=== PATIENT | female | born 1945 | race Caucasian/White ===

== ENCOUNTER → 2017-01-15 | Outpatient (CLI) | payer MEDICARE, OTHER ==
--- NOTE | 2017-01-15 13:06 | RAD ---
DATE: January 15, 2017 EXAM: DIGITAL DIAGNOSTIC BILATERAL HISTORY: Follow-up of left breast nodule seen on study dated November 16, 2015. COMPARISON: November 16, 2015. This study was interpreted with the benefit of Computerized Aided Detection (CAD). FINDINGS: The breast parenchyma is primarily fatty replaced. There are no dominant suspicious masses, suspicious microcalcifications or evidence of architectural distortion. The previously seen nodule of the medial aspect of the left breast is not seen in today's study consistent with a benign finding. IMPRESSION: No mammographic indicators for malignancy. Resolution of nodule of the left breast seen previously consistent with a benign finding. BI-RADS CATEGORY: 2 BENIGN FINDING RECOMMENDED FOLLOW-UP: 12M 12 MONTH FOLLOW-UP PQRS compliance statement: Patient information was entered into a reminder system with a target due date January 16, 2018 for the next mammogram. Mammography is a sensitive method for finding small breast cancers, but it does not detect them all and is not a substitute for careful clinical examination. A negative mammogram does not negate a clinically suspicious finding and should not result in delay in biopsying a clinically suspicious abnormality. "Our facility is accredited by the [employer] Mammography [employer]." The patient's breast density may affect the ability of mammography to detect breast cancer. There are 4 categories of breast density, A, B, C and D. Breast density A means that most of the breast tissue is replaced with adipose tissue and therefore is not dense. Breast density B means that the breast tissue is mildly dense and scattered. Breast density C means that the breast tissue is heterogeneously dense. Breast density D means that the breast tissue is very dense. Breast densities especially C and D may decrease the sensitivity of mammography to detect breast cancer. Therefore, the patient may benefit from 3-D breast mammography (3D breast tomography) as a part of their screening mammogram. Insurance may or may not pay for this additional imaging. The patient's breast density based on today's mammogram is category A.
== END | disposition home or self-care (01) ==
LOC: MAMMO 12:16
PROVIDERS: ATTEND Family Medicine
DX: N63 Unspecified lump in breast (principal)
CPT/HCPCS: G0204; 77066

== ENCOUNTER → 2018-08-04 | Outpatient (CLI) | payer MEDICARE, OTHER ==
--- NOTE | 2018-08-04 16:18 | RAD ---
Examination: 2 views of the bilateral hips and 3 views of the bilateral knees HISTORY: History of hip pain, knee pain COMPARISON: Left knee radiograph from 11/15/2015 FINDINGS: Bilateral femoral heads within the acetabula. Moderate joint space loss identified in the left hip joint. Mild joint space loss identified in the right hip joint. Moderate joint space loss identified in the medial, lateral compartment femoral compartments of the bilateral knees. Chondrocalcinosis identified in the left knee. Moderate osteophyte formation identified in the medial compartment of the right knee. Partially visualized aortic biiliac endovascular graft. IMPRESSION: 1. Moderate degenerative changes left hip joint and moderate bilateral tricompartmental degenerative changes knee joint. 2. Chondrocalcinosis left knee. Electronically signed by: Az Francois MD (08/04/2018 4:14 PM) [place] [id number]
== END | disposition home or self-care (01) ==
LOC: PMG 12:35
PROVIDERS: ATTEND Family Medicine
DX: M11.262 Other chondrocalcinosis, left knee (principal); M17.0 Bilateral primary osteoarthritis of knee; M16.12 Unilateral primary osteoarthritis, left hip; M25.761 Osteophyte, right knee
CPT/HCPCS: 73521; 73562

== ENCOUNTER 2019-07-22 05:37 | Inpatient (IN) | payer MEDICARE, OTHER ==
[~2019-07-22] VITALS: Ht 162.6 cm; Wt 94.3 kg
[2019-07-22] MEDS ORDERED: 0.9 % SODIUM CHLORIDE 10 ML DISP.SYRIN. IV PRN (06:00)
[2019-07-22] MEDS ORDERED: ACETAMINOPHEN 500 MG TABLET PO ONE (06:15)
[2019-07-22] MEDS ORDERED: IV NORMAL SALINE 1,000ML 1,000 ML IV ONE ×2 (06:15→08:00)
--- NOTE | 2019-07-22 06:23 | PHYS DOC ---
Past History Past Medical History: Arthritis, High Cholesterol, Hypertension, MRSA Past Surgical History: Other (AAA SURGERY) Additional Past Surgical Histo: CATARACT Smoking: Less than 1pk/day Alcohol Use: None Adult General Chief Complaint Chief Complaint: FEVER HPI HPI Patient is a 73-year-old female who was brought here by EMS for evaluation of 2 days history of general weakness, fever, cough. Patient also complains of shoulder pain, hip pain , knee pain. Patient has history of arthritis. She is a smoker, not on any oxygen at home. She denies any history of coronary artery disease. Patient had no history of diabetes. She has history hypertension. Her says she is getting weaker, not able to walk around much for the last few day. She denies any chest pain. She also complain of pain in the back of her head. Patient was given 1 L NS iv bolus by EMS on route. All other ROS is negative unless otherwise noted in HPI Review of Systems Review of Systems See above Current Medications Current Medications Current Medications Medications (Trade) Dose Ordered Sig/Almaz Start Time Stop Time Status Last Admin Dose Admin Acetaminophen (Tylenol) 1,000 mg 1X ONCE 07/22/19 06:15 07/22/19 06:16 Sodium Chloride 1,000 ml @ 1,000 mls/hr 1X ONCE 07/22/19 06:15 07/22/19 07:14 Sodium Chloride (Normal Saline Flush) 10 ml QSHIFT PRN 07/22/19 06:00 Allergies Allergies Allergies Coded Allergies Type Severity Reaction Last Updated Verified Iodinated Contrast Media Allergy Intermediate Rash 07/22/19 Yes celecoxib Allergy Intermediate Rash 07/22/19 Yes levothyroxine sodium Allergy Intermediate Rash 07/22/19 Yes lisinopril Allergy Intermediate Rash 07/22/19 Yes nifedipine Allergy Intermediate 07/22/19 Yes adhesive tape Adverse Reaction Mild 07/22/19 Yes pantoprazole Adverse Reaction Mild 07/22/19 Yes Physical Exam Physical Exam See above Constitutional: Well developed, well nourished, no acute distress, non-toxic appearance. [] HENT: Normocephalic, atraumatic, bilateral external ears normal, oropharynx moist, no oral exudates, nose normal. [] Eyes: PERRLA, EOMI, conjunctiva normal, no discharge. [] Neck: Normal range of motion, no tenderness, supple, no stridor. [] Cardiovascular:Heart rate regular rhythm, no murmur [] Lungs & Thorax: Bilateral breath sounds clear to auscultation [] Abdomen: Bowel sounds normal, soft, no tenderness, no masses, no pulsatile masses. [] Skin: Warm, dry, no erythema, no rash. [] Back: No tenderness, no CVA tenderness. [] Extremities: No tenderness, no cyanosis, no clubbing, ROM intact, no edema. [] Neurologic: Alert and oriented X 3, normal motor function, normal sensory function, no focal deficits noted. [] Psychologic: Affect normal, judgement normal, mood normal. [] EKG EKG EKG was read by this physician at 0557, rate of 102 BPM, NO STEMI. SINUS TACHYCARDIA. Radiology/Procedures Radiology/Procedures [][address] [address] IMAGING REPORT Signed PATIENT: VILMA PRITCHETT ACCOUNT: [id number] : 1945 LOCATION: ER AGE: 73 SEX: F EXAM STATUS: REG ER ORD. PHYSICIAN: ZOILA PELAEZ DO REASON: headache PROCEDURE: CT HEAD WO CONTRAST CT HEAD WO CONTRAST History: Headache Comparison: None. Technique: Noncontrast CT imaging was performed of the head. Exposure: One or more of the following individualized dose reduction techniques were utilized for this examination: 1. Automated exposure control 2. Adjustment of the mA and/or kV according to patient size 3. Use of iterative reconstruction technique. Findings: No acute extra-axial or parenchymal hemorrhage is identified. There is no significant intra-axial mass effect, midline shift, or extra-axial fluid collection. The tejada-white differentiation of the major vascular territories is preserved. There is multifocal wbvc-vg-okzzcnyy ill-defined low-density of the supratentorial parenchyma bilaterally. There is atherosclerotic calcification of the carotid siphons bilaterally. The ventricles, sulci, and cisterns are within normal limits in size and configuration. The mastoid air cells and the visualized paranasal sinuses are aerated. No acute calvarial abnormality is identified. Impression: 1. No acute intracranial abnormality is identified. Multifocal low-density of the supratentorial parenchyma bilaterally is nonspecific, more commonly due to chronic microvascular ischemic disease in a patient this age. Electronically signed by: Rickie Gonzalez MD (07/22/2019 7:14 AM) [place] [id number] DICTATED AND SIGNED BY: RICKIE GONZALEZ MD DATE: 07/22/19713 CC: ZOILA PELAEZ DO; DANITZA RAMEY MD ~ [place] [address] IMAGING REPORT Signed PATIENT: VILMA PRITCHETT ACCOUNT: [id number] : 1945 LOCATION: ER AGE: 73 SEX: F EXAM STATUS: REG ER ORD. PHYSICIAN: ZOILA PELAEZ DO REASON: Short of air, fever PROCEDURE: PORTABLE CHEST 1V PORTABLE CHEST 1V History: Shortness of air, fever Comparison: July 18, 2010 Findings: Single view of the chest is submitted. There is again tortuous thoracic aorta, atherosclerotic calcification greater near aortic arch. There is again suspected hiatal hernia. Cardiac silhouette is similar, borderline enlarged. There is no new significant dependent pleural fluid, pneumothorax, or new lobar consolidation. There is degenerative change of the shoulders bilaterally. Impression: 1. No significant infiltrate is identified by radiograph. 2. There is suspected hiatal hernia as seen previously. Electronically signed by: Rickie Gonzalez MD (07/22/2019 7:15 AM) [place] [id number] DICTATED AND SIGNED BY: RICKIE GONZALEZ MD DATE: 07/22/19714 CC: ZOILA PELAEZ DO; DANITZA RAMEY MD ~ Course & Med Decision Making Course & Med Decision Making Pertinent Labs and Imaging studies reviewed. (See chart for details) Patient was given 2 L OF NS IV IN ER in addition to 1 L of NS given by EMS on route. Patient was given 1 gram IV rocephin Dragon Disclaimer Dragon Disclaimer This electronic medical record was generated, in whole or in part, using a voice recognition dictation system. Departure Departure: Impression: Primary Impression: Severe sepsis Additional Impressions: UTI (urinary tract infection) Weakness Disposition: ADMITTED INPATIENT Admitting Physician: Denver Butcher Condition: STABLE Referrals: DANITZA RAMEY MD (PCP) Sepsis Assessment Date and Time of Assessment Date: Jul 22, 2019 Time: 06:48 Respirations Respiratory Effort: Normal Respiratory Pattern: Normal Cardiovascular Pulse Rhythm: Regular HEART: Nml rate, reg. rhythm Lung Sounds Breath Sounds: Clear Capillary Refill Capillary Refill: Lt Hand < 3 seconds Peripheral Pulse Pulse Location: Radial Pulse Strength: Normal (2+) Integumentary Skin: Warm Skin Moisture: Moist Skin Turgor: Normal Skin Color: warm Fingernail Color: WNL Sepsis Assessment Date and Time of Assessment Date: Jul 22, 2019 Time: 08:38 Vital Signs Vital Signs Vital Signs Date Time Temp Pulse Resp B/P (MAP) Pulse Ox O2 Delivery O2 Flow Rate FiO2 07/22/19 07:04 95 20 114/58 (76) 93 Nasal Cannula 4.0 07/22/19 05:37 101.2 Respirations Respiratory Effort: Normal Respiratory Pattern: Normal Cardiovascular Pulse Rhythm: Regular HEART: Nml rate, reg. rhythm Lung Sounds Breath Sounds: Clear Capillary Refill Capillary Refill: Lt Hand < 3 seconds Peripheral Pulse Pulse Location: Radial Pulse Strength: Normal (2+) Pulse Assessment Method: Monitor Integumentary Skin: Warm Skin Moisture: Moist Skin Turgor: Normal Skin Color: warm Fingernail Color: WNL Problem Qualifiers ZOILA PELAEZ DO Jul 22, 2019 06:23
[2019-07-22 06:27] LABS: BASO # 0.2 x10^3/uL (0.0-0.2); BASO % 2 % (0-3); EOS % 0 % (0-3); HEMATOCRIT 39.1 % (36.0-47.0); HEMOGLOBIN 13.2 g/dL (12.0-15.5); LYMPH # 0.2 x10^3/uL (1.0-4.8); LYMPH % 2 % (24-48); MEAN CORPUSCULAR HEMOGLOBIN 30 pg (25-35); MEAN CORPUSCULAR HGB CONC 34 g/dL (31-37); MEAN CORPUSCULAR VOLUME 88 fL (79-100); MONO # 0.6 x10^3/uL (0.0-1.1); MONO % 4 % (0-9); NEUT # 13.5 x10^3uL (1.8-7.7); NEUT % 92 % (31-73); PLATELET COUNT 166 x10^3/uL (140-400); RED BLOOD COUNT 4.43 x10^6/uL (3.50-5.40); RED CELL DISTRIBUTION WIDTH 14.7 % (11.5-14.5); WHITE BLOOD COUNT 14.7 x10^3/uL (4.0-11.0)
[2019-07-22 06:32] LABS: CALCIUM 8.5 mg/dL (8.5-10.1); CREATININE 1.2 mg/dL (0.6-1.0); POTASSIUM 3.4 mmol/L (3.5-5.1)
[2019-07-22 06:49] LABS: ALBUMIN 2.8 g/dL (3.4-5.0); ALBUMIN/GLOBULIN RATIO 0.9 (1.0-1.7); TOTAL BILIRUBIN 0.6 mg/dL (0.2-1.0); TOTAL PROTEIN 5.8 g/dL (6.4-8.2)
[2019-07-22] MEDS ORDERED: IV NORMAL SALINE 50ML 50 ML ONE (06:50)
[2019-07-22] MEDS ORDERED: cefTRIAXone SODIUM 1 GM VIAL ONE (06:50)
--- NOTE | 2019-07-22 07:17 | RAD ---
CT HEAD WO CONTRAST History: Headache Comparison: None. Technique: Noncontrast CT imaging was performed of the head. Exposure: One or more of the following individualized dose reduction techniques were utilized for this examination: 1. Automated exposure control 2. Adjustment of the mA and/or kV according to patient size 3. Use of iterative reconstruction technique. Findings: No acute extra-axial or parenchymal hemorrhage is identified. There is no significant intra-axial mass effect, midline shift, or extra-axial fluid collection. The tejada-white differentiation of the major vascular territories is preserved. There is multifocal oqry-ob-qfmkyzzl ill-defined low-density of the supratentorial parenchyma bilaterally. There is atherosclerotic calcification of the carotid siphons bilaterally. The ventricles, sulci, and cisterns are within normal limits in size and configuration. The mastoid air cells and the visualized paranasal sinuses are aerated. No acute calvarial abnormality is identified. Impression: 1. No acute intracranial abnormality is identified. Multifocal low-density of the supratentorial parenchyma bilaterally is nonspecific, more commonly due to chronic microvascular ischemic disease in a patient this age. Electronically signed by: Suleiman Lopez MD (07/22/2019 7:14 AM) [facility]
--- NOTE | 2019-07-22 07:18 | RAD ---
PORTABLE CHEST 1V History: Shortness of air, fever Comparison: July 18, 2010 Findings: Single view of the chest is submitted. There is again tortuous thoracic aorta, atherosclerotic calcification greater near aortic arch. There is again suspected hiatal hernia. Cardiac silhouette is similar, borderline enlarged. There is no new significant dependent pleural fluid, pneumothorax, or new lobar consolidation. There is degenerative change of the shoulders bilaterally. Impression: 1. No significant infiltrate is identified by radiograph. 2. There is suspected hiatal hernia as seen previously. Electronically signed by: Slueiman Lopez MD (07/22/2019 7:15 AM) [facility]
[2019-07-22 07:28] LABS: INFLUENZA A PATIENT NEGATIVE (NEGATIVE); INFLUENZA B PATIENT NEGATIVE (NEGATIVE)
[2019-07-22] MEDS ORDERED: ONDANSETRON PF 4 MG/2 ML VIAL. IV PRN (08:00)
[2019-07-22] MEDS: IPRATRPIUM/ALBUTEROL 0.5/2.5MG 3 ML NEBU. NEB SCH ×4 (08:00→22:23)
[2019-07-22 08:18] LABS: BILIRUBIN,URINE NEG (NEG); CLARITY,URINE HAZY; COLOR,URINE YELLOW; GLUCOSE,URINE NEG (NEG); GRANULAR CASTS,URINE FEW /HPF; HYALINE CASTS, URINE OCC /HPF; NITRITE,URINE NEG (NEG); SQUAMOUS EPITHELIAL CELL,UR FEW /LPF; WBC,URINE >40 /HPF (0-4)
[2019-07-22 08:20] LABS: BACTERIA,URINE MOD /HPF (0-FEW)
[2019-07-22 09:29] VITALS: BP 104/65
--- NOTE | 2019-07-22 09:38 | RAD ---
EXAM: Pelvis and left hip, 3 views. HISTORY: Fall. Pain. COMPARISON: 08/04/2018 FINDINGS: A frontal view of the pelvis and frontal and frog-leg views of the left hip are obtained. There is no fracture, dislocation or subluxation. There is scoliosis and degenerative change throughout the visualized lumbar spine. There is an aortobiiliac endograft. There are metallic clips overlying the left inguinal region. IMPRESSION: No acute osseous finding. Electronically signed by: Elin Cuello MD (07/22/2019 9:35 AM) [place] [id number]
[2019-07-22] MEDS: IV NORMAL SALINE 1,000ML 1,000 ML IV SCH ×2 (10:14→21:22)
--- NOTE | 2019-07-22 10:30 | NUR ---
The patient, VILMA PRITCHETT, 73 y/o, F admitted by VIANCA BORDEN MD, was given written information regarding hospital policies, unit procedures and contact persons. Valuables were checked and left in room. Patient arrived to room 125 via gurnery from ER. Patient arrived with 4l nc, sats remain around 92%. Patient states she is normally on Room Air. Patient states she has had a rough couple of days, denies pain or discomfort at this time. Continues on IV fluids and ABT for uti. Awaiting for Dr Borden to see patient. Home meds given to pharmacy and per he would like us to use home medications due to severe rash occuring when patient uses generic brands.
[2019-07-22 11:16] VITALS: BP 108/67
[2019-07-22] MEDS ORDERED: PSEU1CAP14 PO (11:24)
[2019-07-22] MEDS ORDERED: MOME17SP NS (11:24)
[2019-07-22] MEDS ORDERED: OMEP20TA63 PO (11:24)
[2019-07-22] MEDS ORDERED: MOME15CR13 TP (11:24)
[2019-07-22] MEDS ORDERED: ASCO500C PO (11:24)
[2019-07-22] MEDS ORDERED: MULT-245 PO (11:24)
[2019-07-22] MEDS ORDERED: GLUC1TAB71 PO (11:24)
[2019-07-22] MEDS ORDERED: TRIA15OI TP (11:24)
[2019-07-22] MEDS ORDERED: CLOB15OI3 TP (11:24)
[2019-07-22] MEDS ORDERED: BACI1TAB2 PO (11:24)
[2019-07-22] MEDS ORDERED: AZEL205.2 NS (11:24)
[2019-07-22] MEDS ORDERED: LISI-378 PO (11:24)
[2019-07-22] MEDS ORDERED: CALC-71 PO (11:24)
[2019-07-22] MEDS ORDERED: ATOR40TA PO (11:24)
[2019-07-22] MEDS ORDERED: IBUP400T99 PO (11:24)
[2019-07-22] MEDS ORDERED: NIFE60TA PO (11:24)
[2019-07-22] MEDS ORDERED: GUAI600T47 PO (11:24)
[2019-07-22] MEDS ORDERED: SULF1TAB24 PO (11:24)
--- NOTE | 2019-07-22 12:33 | NUR ---
Reported to Dr Butcher elevated troponins. Echocardiogram ordered and Consult placed for Cardiology.
[2019-07-22] MEDS: ACETAMINOPHEN 325 MG TABLET PO PRN (15:22)
[2019-07-22 15:35] VITALS: BP 136/72
[2019-07-22] MEDS ORDERED: MOMETASONE FUROATE TP PRN (16:00)
--- NOTE | 2019-07-22 16:04 | NUR ---
Cardiology and Dr Butcher here to see patient, orders placed. Patient has elevated temp and feeling very achy and has chills. PRN Tylenol given at this time, will continue to monitor temperatures. IV ABT started.
--- NOTE | 2019-07-22 16:44 | CARD ---
MR#: [id number] Date of Study: 07/22/2019 Ordering Physician: VIANCA BORDEN, Referring Physician: VIANCA BORDEN Tech: Kezia Costa RDCS APPROVED REPORT EXAM: Two-dimensional and M-mode echocardiogram with Doppler and color Doppler. Other Information Quality : Good Technically limited study due to body habitus. INDICATION Elevated Troponin 2D DIMENSIONS RVDd2.5 (2.9-3.5cm)Left Atrium(2D)3.8 (1.6-4.0cm) IVSd1.0 (0.7-1.1cm)Aortic Root(2D)2.9 (2.0-3.7cm) LVDd4.5 (3.9-5.9cm)LVOT Diameter2.0 (1.8-2.4cm) PWd1.0 (0.7-1.1cm)LVDs2.3 (2.5-4.0cm) FS (%) 30.0 %SV73.8 ml LVEF(%)60.0 (>50%) Aortic Valve AoV Peak Riccardo.193.1cm/sAoV VTI32.2cm AO Peak GR.14.9mmHgAO Mean GR.9mmHg SCARLETT (VTI)1.86cm2 Mitral Valve MV E Eojeefod206.1cm/sMV DECEL LUMP577gh MV A Gkvrpwka822.0cm/sE/A Ratio0.9 Tricuspid Valve TR P. Lryoqath619ct/sRAP OBLMNMTH3nqLb TR Peak Gr.80lqLbXMHN54drVe LEFT VENTRICLE The left ventricle is normal size. There is normal left ventricular wall thickness. The left ventricu lar systolic function is normal and the ejection fraction is within normal range. The Ejection Fracti on is 55-60%. There is normal LV segmental wall motion. Transmitral Doppler flow pattern is Grade I-a bnormal relaxation pattern. RIGHT VENTRICLE The right ventricle is normal size. The right ventricular systolic function is normal. ATRIA The left atrium size is normal. The right atrium size is normal. The interatrial septum is intact wit h no evidence for an atrial septal defect or patent foramen ovale as noted on 2-D or Doppler imaging. AORTIC VALVE The aortic valve is calcified but opens well. Doppler and Color Flow revealed no significant aortic r egurgitation. There is no significant aortic valvular stenosis. MITRAL VALVE The mitral valve is calcified but opens well. Mitral annular calcification is mild. There is no evide nce of mitral valve prolapse. There is no mitral valve stenosis. Doppler and Color-flow revealed trac e mitral regurgitation. TRICUSPID VALVE The tricuspid valve is normal in structure and function. Doppler and Color Flow revealed mild tricusp id regurgitation. There is mild pulmonary hypertension. The PA pressure was estimated at 30 mmHg. The re is no tricuspid valve stenosis. PULMONIC VALVE The pulmonic valve is not well visualized. Doppler and Color Flow revealed trace pulmonic valvular re gurgitation. There is no pulmonic valvular stenosis. GREAT VESSELS The aortic root is normal in size. The ascending aorta is mildly dilated at 3.6 cm. The IVC is normal in size and collapses >50% with inspiration. PERICARDIAL EFFUSION There is no evidence of significant pericardial effusion. Critical Notification Critical Value: No <Conclusion> The left ventricular systolic function is normal and the ejection fraction is within normal range. Th e Ejection Fraction is 55-60%. There is normal LV segmental wall motion. Doppler and Color Flow revealed mild tricuspid regurgitation. There is mild pulmonary hypertension. T he PA pressure was estimated at 30 mmHg. The ascending aorta is mildly dilated at 3.6 cm. Signed by : James Dooley, Electronically Approved : 07/22/2019 16:43:52
[2019-07-22] MEDS ORDERED: [UNRECOGNIZED DRUG - OTHER] PO PRN (17:00)
[2019-07-22] MEDS ORDERED: PSEUDOEPHEDRINE HCL PO PRN (17:00)
[2019-07-22] MEDS: ATORVASTATIN CALCIUM 40 MG PO SCH (17:00)
--- NOTE | 2019-07-22 17:23 | HP ---
ADMIT DATE: 07/22/2019 HISTORY OF PRESENT ILLNESS: The patient is a 73-year-old female patient, who was brought to the Emergency Room by EMS for evaluation of a 2-day history of generalized weakness, fever and cough. The patient also complained of shoulder pain, hip pain and knee pain. The patient has history of arthritis. She is a smoker, not on any oxygen at home. She denies any history of coronary artery disease. No history of diabetes. She has a history of hypertension. Her said that she has been getting weaker, not able to walk around much in the last few days. She denied any chest pain, but complained of back pain. She was given a liter of normal saline bolus on route by the EMS. She was extensively evaluated in the Emergency Room. Her lab work showed that her white cell count was elevated at 14,700. Her chemistry was unremarkable except for hypokalemia and slightly elevated creatinine. Her prothrombin time, INR and PTT were normal. Her urinalysis showed moderate amount of bacteria, more than 40 wbc's, small amount of leukocyte esterase. Her influenza A and B were negative. She did have a CT scan. Her chest x-ray was unremarkable. CT scan of the head was also unremarkable and she apparently fell and land on her hip and x-ray of the hip showed no acute osseous finding. The patient was admitted for further evaluation and to be treated for febrile illness, most likely urinary tract infection. PAST MEDICAL HISTORY: Significant for hypertension, hyperlipidemia, goiter, generalized osteoarthritis and recurrent MRSA infection. PAST SURGICAL HISTORY: Significant for back surgery, colon surgery, tonsillectomy, adenoidectomy and abdominal aortic aneurysm repair. She also had bilateral cataract extraction. ALLERGIES: SHE IS ALLERGIC TO IODINATED CONTRAST MEDIA, ADHESIVE TAPE, CELEBREX, LEVOTHYROXINE SODIUM, LISINOPRIL, NIFEDIPINE AND PROTONIX. MEDICATIONS: She is currently on following medications: She is on pseudoephedrine and acrivastine (Semprex) 4 times a day, sulfamethoxazole and trimethoprim 1 tablet daily, atorvastatin calcium 40 mg at bedtime, nifedipine 60 mg once a day, lisinopril 20 mg once a day, ibuprofen 400 mg once a day, calcium carbonate with vitamin D3 twice a day, guaifenesin 600 mg twice a day, azelastine 2 sprays to each nostril twice a day, mometasone furoate for Nasonex 1 spray to each nostril twice a day; omeprazole 20 mg, she takes 2 tablets once a day; Bacillus coagulans 1 capsule once a day, clobetasol propionate for Temovate 1 application twice a day, mometasone furoate for Elocon applied topically for eczema, triamcinolone acetonide 1 application to both ears, ascorbic acid 500 mg daily, multivitamin 1 tablet once a day, glucosamine/boswellia (Osteo Bi-Flex) 1 capsule twice a day. FAMILY HISTORY: Noncontributory. SOCIAL HISTORY: She is , has 1 son. She continued to smoke up to 10 cigarettes per day. She does not drink alcohol. 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 REVIEW OF SYSTEMS: As per history of present illness. PHYSICAL EXAMINATION: GENERAL: On arrival, she was clearly unwell, but there was no pallor, jaundice, cyanosis or thyromegaly. No jugular venous distention. No limb edema. VITAL SIGNS: Her heart rate was 101, blood pressure was 123/56, temperature was 101.2, respiratory rate was 24 and oxygen saturation was 92% on 4 liters of oxygen. HEAD, EYES, EARS, NOSE AND THROAT: Showed normocephalic, atraumatic. NECK: Supple. HEART: Showed normal first and second heart sounds. No gallop or murmur. CHEST: Clear to auscultation. No crepitation or rhonchi. ABDOMEN: Distended, soft, nontender. NEUROLOGIC: She is awake, alert, responding appropriately. All cranial nerves intact. EXTREMITIES: She moves extremities without difficulty, although she has been extremely weak and unable to walk. LABORATORY DATA: Her lab work showed a white cell count 14,700, hemoglobin 13, hematocrit 39, MCV 88 and platelet count of 166,000. Her prothrombin time was 11.8, INR 1.1, aPTT was 30. Serum sodium was 139, potassium 3.4, chloride 102, bicarbonate 24, anion gap of 13, BUN 18, creatinine 1.2, estimated GFR was 44 mL per minute. Her glucose 127. Lactic acid was 3 and calcium was 8.5. Total bilirubin, AST, ALT were normal. Alkaline phosphatase slightly elevated. Her first troponin was slightly elevated at 0.170. Beta natriuretic peptide was 1078. Total protein was 5.8, albumin 2.8. Urinalysis showed the urine was yellow, hazy with a pH of 6, specific gravity 1.025, small amount of protein. The urine was negative for glucose, ketones, blood or nitrite. There was small amount of leukocyte esterase, 3-5 rbc's, more than 40 wbc's, moderate amount of bacteria. Her influenza A and B were negative. IMAGING: Her chest x-ray was basically with no significant infiltrate identified by radiographs. There is suspected hiatal hernia seen. Her CT scan of the head showed no acute intracranial abnormality identified, multifocal low density of the supratentorial parenchyma bilaterally is nonspecific, but commonly due to chronic microvascular ischemic disease in a patient of this age and her hip and pelvic x-ray showed that there is no fracture, dislocation or subluxation. There is scoliosis and degenerative changes throughout the visualized lumbar spine. There is aortoiliac endograft. There are metallic clips overlying the left inguinal region. ASSESSMENT AND PLAN: In summary, this is a 73-year-old, who came in with generalized weakness, fever, cough and chills and the only abnormality was in her urine, so was started on intravenous Rocephin together with intravenous fluid. She received 2 liters of fluid in the Emergency Room. We will continue with intravenous fluid, continue with ceftriaxone. We will reconcile all her medication obviously once we have the blood cultures or urine culture. VIANCA BORDEN MD DR: FAITH/shailesh JOB#: [id number] / [id number]
--- NOTE | 2019-07-22 17:43 | EKG ---
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
[2019-07-22] MEDS: ASCORBIC ACID 500 MG TABLET PO SCH (18:32)
[2019-07-22] MEDS: CALCIUM CARB/VIT D3 500/200 TABLET PO SCH (18:32)
[2019-07-22] MEDS: NIFEDIPINE PO SCH (18:32)
[2019-07-22 19:36] VITALS: BP 108/65
--- NOTE | 2019-07-22 20:05 | CONS ---
DATE OF CONSULTATION: 07/22/2019 REASON FOR CONSULTATION: Elevated troponin. HISTORY OF PRESENT ILLNESS: The patient is a very pleasant 73-year-old woman who we follow through our office for history of abdominal aortic aneurysm, presented with episode of fever and cough. For unclear reasons, a troponin was checked and this was found to be mildly elevated. She was admitted to the hospital for further evaluation and treatment of a urinary tract infection and underlying fever. The patient has not had any chest pain or exertional dyspnea at home. Initial chest x-ray was unremarkable for any cardiac pathology and she also underwent an echocardiogram prior to my evaluation, which was grossly unremarkable. PAST MEDICAL HISTORY: 1. Abdominal aortic aneurysm. 2. Hypertension. 3. Dyslipidemia. SOCIAL HISTORY: She is . Denies any alcohol, tobacco or illicit drug use. ALLERGIES: IODINATED CONTRAST, ADHESIVE TAPE AND CELEBREX AND LISINOPRIL AND OTHER DRUGS INCLUDING NIFEDIPINE AND PROTONIX. CURRENT CARDIOVASCULAR MEDICATIONS: As follows: 1. Nifedipine XL. 2. Lipitor 40 mg. 3. Zestril 20 mg. REVIEW OF SYSTEMS: Negative for 10 out of 14 systems reviewed, unless otherwise mentioned above in HPI. PHYSICAL EXAMINATION: GENERAL: She is mildly fatigued, but otherwise alert and oriented. HEAD AND NECK: Unremarkable. CARDIAC: Within normal limits. LUNGS: Clear to auscultation anteriorly. ABDOMEN: Soft, mildly tender to palpation diffusely. EXTREMITIES: There is no significant lower extremity edema. NEUROLOGIC: There are no focal deficits. MUSCULOSKELETAL: No obvious trauma. DIAGNOSTIC STUDIES: Urinalysis is positive for greater than 40 wbc's and bacteria with positive leukocyte esterase and her creatinine is 1.2. Cardiac enzymes are mildly elevated at 0.17, up trending to 0.209. White blood cell count is elevated at 14.7. Echocardiogram as previously noted demonstrates normal LV systolic function without any significant valvular heart disease. IMPRESSION: 1. Elevated troponin, likely in the setting of a severe urinary tract infection/sepsis. 2. Known history of prior small abdominal aortic aneurysm, which has been monitored through Vascular Surgery colleagues. 3. Hypertension. 4. Tobacco abuse. 5. Dyslipidemia. RECOMMENDATIONS: From a purely cardiovascular perspective, continue present medical therapy. No further cardiac enzymes need to be checked. Her EKG has been unremarkable. Thank you for this consultation. Please call with any further questions. KVNG RODRIGUEZ MD DR: BREE/shailesh JOB#: [id number] / [id number]
[2019-07-22] MEDS ORDERED: CLOBETASOL EMOLLIENT 0.05% TOPICAL CREAM 15GM TUBE. TP PRN (21:00)
[2019-07-22] MEDS ORDERED: NON FORMULARY ITEM (Glucosamine/D3/Boswellia Serra (Osteo Bi-Flex Caplet) 1 EACH) PO SCH (21:00)
[2019-07-22] MEDS: MOMETASONE FUROATE INH SCH (21:20)
[2019-07-22] MEDS: AZELASTINE HCL INH SCH (21:20)
[2019-07-22] MEDS: LACTOBACILLUS RHAMNOSUS GG 1 CAPSULE. PO SCH (21:22)
[2019-07-22] MEDS: CALCIUM CARBONATE 500 MG TAB.CHEW PO PRN (22:16)
[2019-07-22 22:23] VITALS: BP 134/75
[2019-07-23] MEDS: ACETAMINOPHEN 325 MG TABLET PO PRN (02:17)
[2019-07-23 05:10] VITALS: BP 130/70
[2019-07-23] MEDS: IPRATRPIUM/ALBUTEROL 0.5/2.5MG 3 ML NEBU. NEB SCH ×4 (06:33→21:37)
[2019-07-23] MEDS: CALCIUM CARB/VIT D3 500/200 TABLET PO SCH ×2 (08:17→16:50)
[2019-07-23] MEDS: MULTIVITAMIN with MINERAL TABLET. PO SCH (08:17)
[2019-07-23] MEDS: LACTOBACILLUS RHAMNOSUS GG 1 CAPSULE. PO SCH ×2 (08:17→21:53)
[2019-07-23] MEDS: AZELASTINE HCL INH SCH ×2 (08:18→21:00)
[2019-07-23] MEDS: TRIAMCINOLONE ACETONIDE 0.1% TOPICAL OINTMENT 15GM TUBE. TP SCH (08:20)
--- NOTE | 2019-07-23 08:32 | NUR ---
NURSING NOTES: THIS NURSE NOTIFIED PATIENT BLOOD CULTURE SHOWS POSITIVE FOR GRAM NEGATIVE RODS IN 1/[address] BORDEN AND CONTINUE TO MONITOR.
[2019-07-23] MEDS ORDERED: OMEPRAZOLE MAGNESIUM 20 MG PO SCH (09:00)
[2019-07-23] MEDS ORDERED: BACILLUS COAGULANS PO SCH (09:00)
[2019-07-23 10:06] VITALS: BP 117/64
--- NOTE | 2019-07-23 12:38 | NUR ---
NURSING NOTES: THIS NURSE NOTIFIED PATIENT BLOOD CULTURE SHOWS NOW POSITIVE FOR GRAM NEGATIVE RODS IN 2/[address] BORDEN AND CONTINUE TO MONITOR.
[2019-07-23 14:34] VITALS: BP 148/76
[2019-07-23] MEDS: PSEUDOEPHEDRINE HCL PO SCH ×2 (15:00→21:00)
[2019-07-23] MEDS: [UNRECOGNIZED DRUG - OTHER] PO SCH ×2 (15:00→21:00)
[2019-07-23] MEDS: IBUPROFEN 600 MG TABLET. PO PRN ×2 (15:24→22:05)
[2019-07-23 16:13] LABS: HEMATOCRIT 37.3 % (36.0-47.0); HEMOGLOBIN 12.3 g/dL (12.0-15.5); RED BLOOD COUNT 4.11 x10^6/uL (3.50-5.40); RED CELL DISTRIBUTION WIDTH 14.7 % (11.5-14.5); WHITE BLOOD COUNT 11.6 x10^3/uL (4.0-11.0)
[2019-07-23 16:24] LABS: CALCIUM 8.2 mg/dL (8.5-10.1); CREATININE 1.1 mg/dL (0.6-1.0); GFR 48.7; POTASSIUM 3.5 mmol/L (3.5-5.1)
--- NOTE | 2019-07-23 16:34 | PDOC ---
Progress Note. Subjective: Patient seen and examined Objective: Vital Signs/I&O: Vital Signs Date Time Temp Pulse Resp B/P (MAP) Pulse Ox O2 Delivery O2 Flow Rate FiO2 07/23/19 14:34 97.9 94 22 148/76 (100) 92 Nasal Cannula 4.0 I & O 07/22/19 07/22/19 07/23/19 15:00 23:00 07:00 Intake Total 2290 ml 1600 ml 143.3 ml Output Total 300 ml Balance 2290 ml 1300 ml 143.3 ml Labs: Laboratory Tests Test 07/23/19 15:50 White Blood Count 11.6 x10^3/uL (4.0-11.0) H Red Blood Count 4.11 x10^6/uL (3.50-5.40) Hemoglobin 12.3 g/dL (12.0-15.5) Hematocrit 37.3 % (36.0-47.0) Mean Corpuscular Volume 91 fL (79-100) Mean Corpuscular Hemoglobin 30 pg (25-35) Mean Corpuscular Hemoglobin Concent 33 g/dL (31-37) Red Cell Distribution Width 14.7 % (11.5-14.5) H Platelet Count 148 x10^3/uL (140-400) Sodium Level 139 mmol/L (136-145) Potassium Level 3.5 mmol/L (3.5-5.1) Chloride Level 104 mmol/L (98-107) Carbon Dioxide Level 25 mmol/L (21-32) Anion Gap 10 (6-14) Blood Urea Nitrogen 18 mg/dL (7-20) Creatinine 1.1 mg/dL (0.6-1.0) H Estimated GFR (Cockcroft-Gault) 48.7 Glucose Level 118 mg/dL (70-99) H Calcium Level 8.2 mg/dL (8.5-10.1) L Physical Exam: Gen. no apparent distress Cardiovascular: Normal S1 and S2 I/IV murmur Pulmonary: Lungs are clear bilaterally with good air movement no respiratory distress Abdomen: Soft nontender non-distended, bowel sounds present no masses Extremities: No clubbing, cyanosis or edema Assessment: 1. Elevated troponin, likely in the setting of a severe urinary tract infection/sepsis. Echo shows normal LV function. Cardiovascularly stable. Continue present treatment. 2. Known history of prior small abdominal aortic aneurysm, which has been monitored through Vascular Surgery. 3. Hypertension. Under better control. 4. Tobacco abuse. 5. Dyslipidemia. KAY OTERO MD Jul 23, 2019 16:34
[2019-07-23] MEDS: NIFEDIPINE PO SCH (16:50)
[2019-07-23] MEDS: ATORVASTATIN CALCIUM 40 MG PO SCH (16:51)
[2019-07-23] MEDS: ASCORBIC ACID 500 MG TABLET PO SCH (16:53)
[2019-07-23 20:47] VITALS: BP 122/71
[2019-07-23] MEDS: MOMETASONE FUROATE INH SCH (21:00)
[2019-07-23] MEDS: CALCIUM CARBONATE 500 MG TAB.CHEW PO PRN (21:53)
[2019-07-23 22:52] VITALS: BP 145/66
--- NOTE | 2019-07-23 23:07 | PN ---
DATE: 07/23/2019 SUBJECTIVE: The patient is resting, slightly propped up in bed and definitely much improved. She is more awake, alert. She is afebrile. Her cough has largely subsided. PHYSICAL EXAMINATION: GENERAL: When I examined her, she looked well and was clearly in no apparent respiratory distress. No pallor, jaundice or cyanosis. No lymphadenopathy, no thyromegaly. No jugular venous distention. No limb edema. VITAL SIGNS: Her heart rate was 94, blood pressure was 148/76, temperature 97.9, respiratory rate was 22 and oxygen saturation was 92% on 4 liters of oxygen. HEAD, EYES, EARS, NOSE AND THROAT: Showed normocephalic, atraumatic. NECK: Supple. HEART: Showed normal first and second heart sounds. No gallop, murmurs. CHEST: Clear to auscultation. No crepitation or rhonchi. ABDOMEN: Distended, soft, nontender. NEUROLOGIC: She was definitely more awake, alert, somewhat confused. All her cranial nerves are intact. She moves extremities without difficulty. She ambulates without assistance or assistive devices. Her intake was 4000, output 300. LABORATORY DATA: Labwork still pending at the time of this dictation. So far, the blood cultures have grown gram-negative rods. The identification and sensitivity is still pending. ASSESSMENT: Generalized weakness, fever, cough and chills. She definitely has urinary tract infection. Her blood culture has grown gram-negative rods, the result of which is still pending at the time of this dictation. 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 PLAN: To continue with IV Rocephin. Continue with all other medication. Await the result of culture and sensitivity. VIANCA BORDEN MD DR: FAITH/shailesh JOB#: [id number] / [id number]
[2019-07-24] MEDS: IPRATRPIUM/ALBUTEROL 0.5/2.5MG 3 ML NEBU. NEB SCH ×4 (05:26→20:00)
[2019-07-24 05:33] VITALS: BP 128/72
--- NOTE | 2019-07-24 06:36 | NUR ---
Pt active, pleasant and heavily interactive with staff through the evening, watching tv and talking on the phone. Pt concerned about timing of bp and cholesterol doses, stating they don't line up with her scheduled times at home. Assured pt of information sharing during nursing shift changes. Pt slept off and on through night between toileting. Will continue to monitor.
[2019-07-24] MEDS: OMEPRAZOLE MAGNESIUM PO SCH ×2 (07:30→09:00)
[2019-07-24 07:41] LABS: CALCIUM 8.3 mg/dL (8.5-10.1); CREATININE 0.8 mg/dL (0.6-1.0); GFR 70.3; POTASSIUM 3.6 mmol/L (3.5-5.1)
[2019-07-24 07:45] LABS: HEMATOCRIT 36.3 % (36.0-47.0); RED BLOOD COUNT 4.03 x10^6/uL (3.50-5.40); RED CELL DISTRIBUTION WIDTH 14.8 % (11.5-14.5); WHITE BLOOD COUNT 13.1 x10^3/uL (4.0-11.0)
[2019-07-24] MEDS: CALCIUM CARB/VIT D3 500/200 TABLET PO SCH ×2 (08:06→17:18)
[2019-07-24] MEDS: LACTOBACILLUS RHAMNOSUS GG 1 CAPSULE. PO SCH ×2 (08:06→21:38)
[2019-07-24] MEDS: MULTIVITAMIN with MINERAL TABLET. PO SCH (08:06)
[2019-07-24] MEDS: IBUPROFEN 600 MG TABLET. PO PRN ×3 (08:07→21:39)
[2019-07-24] MEDS: AZELASTINE HCL INH SCH ×2 (08:07→21:00)
[2019-07-24] MEDS: [UNRECOGNIZED DRUG - OTHER] PO SCH ×3 (08:09→21:00)
[2019-07-24] MEDS: PSEUDOEPHEDRINE HCL PO SCH ×3 (08:09→21:00)
[2019-07-24] MEDS: TRIAMCINOLONE ACETONIDE 0.1% TOPICAL OINTMENT 15GM TUBE. TP SCH (08:12)
[2019-07-24 10:50] VITALS: BP 133/68
[2019-07-24 15:38] VITALS: BP 131/70
[2019-07-24] MEDS: ASCORBIC ACID 500 MG TABLET PO SCH (17:18)
[2019-07-24] MEDS: ATORVASTATIN CALCIUM 40 MG PO SCH (17:18)
[2019-07-24] MEDS: NIFEDIPINE PO SCH (17:18)
[2019-07-24 19:11] VITALS: BP 149/80
[2019-07-24] MEDS: MOMETASONE FUROATE INH SCH (21:00)
[2019-07-24 22:29] VITALS: BP 144/81
--- NOTE | 2019-07-25 00:46 | PN ---
DATE: 07/24/2019 SUBJECTIVE: The patient is resting, slightly propped up in bed, in no apparent respiratory distress. She is awake, alert, responding appropriately. She is afebrile. Her BUN and creatinine are trending down. Her white cell count is slightly up today. Her blood culture has grown gram-negative rods. The identification and sensitivity is still pending at the time of this dictation. PHYSICAL EXAMINATION: GENERAL: When I examined her, she looked well and was clearly in no apparent respiratory distress. No pallor, jaundice, cyanosis or thyromegaly. No jugular venous distension. No lower limb edema. VITAL SIGNS: Her heart rate was 92, blood pressure was 133/68, temperature 98.5, respiratory rate 22, and oxygen saturation was 92% on 4 liters of oxygen. HEAD, EYES, EARS, NOSE AND THROAT: Showed normocephalic, atraumatic. NECK: Supple. HEART: Showed normal first and second heart sounds with no gallop or murmur. CHEST: Clear to auscultation. No crepitation or rhonchi. ABDOMEN: Distended, soft, nontender. NEUROLOGIC: She is awake, alert, responding appropriately. All cranial nerves intact. She moves extremities without difficulty. LABORATORY DATA: Her lab work this morning showed a white cell count to be 13,000, hemoglobin 12, hematocrit 36, MCV 90 and platelet count of 146,000. Her chemistry showed a BUN of 16, creatinine 0.8. ASSESSMENT: 1. Generalized weakness. 2. The patient has grown gram-negative rods. The identification and sensitivity is still pending. 3. She is known to have hypertension that seems to be well controlled. 4. Hyperlipidemia. 5. Small abdominal aortic aneurysm, stable. 6. Elevated troponin, likely due to demand. VIANCA BORDEN MD DR: FAITH/shailesh JOB#: [id number] / [id number]
--- NOTE | 2019-07-25 04:11 | NUR ---
Pt sleeping more soundly this night. C/o chronic pain in joints. She states it is "worse with humidity or weather changes. Ibuprofen given. Will continue to monitor.
[2019-07-25] MEDS: IPRATRPIUM/ALBUTEROL 0.5/2.5MG 3 ML NEBU. NEB SCH ×4 (05:09→21:47)
[2019-07-25 06:14] VITALS: BP 142/85
[2019-07-25] MEDS: OMEPRAZOLE MAGNESIUM PO SCH (07:22)
[2019-07-25] MEDS: TRIAMCINOLONE ACETONIDE 0.1% TOPICAL OINTMENT 15GM TUBE. TP SCH (07:37)
[2019-07-25 07:55] LABS: HEMOGLOBIN 11.9 g/dL (12.0-15.5); RED CELL DISTRIBUTION WIDTH 15.2 % (11.5-14.5); WHITE BLOOD COUNT 14.2 x10^3/uL (4.0-11.0)
[2019-07-25] MEDS: CALCIUM CARB/VIT D3 500/200 TABLET PO SCH ×2 (08:00→16:33)
[2019-07-25 08:04] LABS: ALBUMIN 2.2 g/dL (3.4-5.0); ALBUMIN/GLOBULIN RATIO 0.6 (1.0-1.7); CALCIUM 8.6 mg/dL (8.5-10.1); CREATININE 0.7 mg/dL (0.6-1.0); POTASSIUM 3.2 mmol/L (3.5-5.1); TOTAL BILIRUBIN 0.5 mg/dL (0.2-1.0); TOTAL PROTEIN 6.2 g/dL (6.4-8.2)
[2019-07-25] MEDS: PSEUDOEPHEDRINE HCL PO SCH ×3 (08:25→20:29)
[2019-07-25] MEDS: [UNRECOGNIZED DRUG - OTHER] PO SCH ×3 (08:25→20:29)
[2019-07-25] MEDS: LACTOBACILLUS RHAMNOSUS GG 1 CAPSULE. PO SCH ×2 (08:25→20:25)
[2019-07-25] MEDS: MULTIVITAMIN with MINERAL TABLET. PO SCH (08:25)
[2019-07-25] MEDS: AZELASTINE HCL INH SCH ×2 (08:26→20:26)
[2019-07-25] MEDS: CALCIUM CARBONATE 500 MG TAB.CHEW PO PRN (08:28)
[2019-07-25] MEDS: IBUPROFEN 600 MG TABLET. PO PRN ×2 (08:28→16:33)
[2019-07-25 11:13] VITALS: BP 162/66
--- NOTE | 2019-07-25 13:56 | RAD ---
EXAM: Chest, single view. HISTORY: Shortness of breath. Cough. COMPARISON: 11/16/2012. FINDINGS: A frontal view of the chest is obtained. There is mild central predominant increased interstitial opacity. There is no consolidation. There are suspected trace pleural effusions. There is no pneumothorax. The heart is normal in size. IMPRESSION: Suspected central predominant diffuse interstitial infiltrate. Electronically signed by: Elin Cuello MD (07/25/2019 1:53 PM) [facility] [place]
[2019-07-25 14:31] VITALS: BP 131/66
--- NOTE | 2019-07-25 15:46 | PN ---
DATE: 07/25/2019 SUBJECTIVE: The patient is resting, slightly propped up in bed, in no apparent distress. She does not complain of any chest pain or shortness of breath, but she continued to be hypoxic despite being on 4 liters of oxygen. She is on IV antibiotic in the form of ceftriaxone and she is growing gram-negative rods. The identification and sensitivity is still pending at the time of this dictation. PHYSICAL EXAMINATION: GENERAL: When I examined her, she looked well, slightly tachypneic, but no jaundice, cyanosis, or thyromegaly. No jugular venous distension. No lower limb edema. VITAL SIGNS: Her heart rate was 95, blood pressure was 162/66, temperature 98.3, respiratory rate was 24, and oxygen saturation was 92% on 4 liters of oxygen. HEAD, EYES, EARS, NOSE AND THROAT: Showed normocephalic, atraumatic. NECK: Supple. HEART: Showed normal first and second heart sounds. No gallop or murmur. CHEST: Clear to auscultation. No crepitation or rhonchi. ABDOMEN: Distended, soft, nontender. No guarding or rigidity. No organomegaly. All hernial orifice intact. Bowel sounds normal. NEUROLOGIC: She is awake, alert, responding appropriately. All cranial nerves are intact. She moves extremities without difficulty. She was able to ambulate with a walker yesterday. ASSESSMENT: 1. Generalized weakness seems to be slowly improving. 2. The patient has grown gram-negative rods, identification and sensitivity is still pending. Surprisingly, her urine culture has grown only this 10,000 colony-forming units of bacteria. She is known to have hypertension that seems to be reasonably controlled. 3. Hyperlipidemia. 4. Small abdominal aortic aneurysm that is stable. 5. Elevated troponin, likely due to demand. 6. Hypoxia, the reason for which is not really clear to me. PLAN: She is unfortunately ALLERGIC TO IODINATED CONTRAST and we will have to probably use the protocol for desensitization for Yoko CT scan tomorrow. VIANCA BORDEN MD DR: FAITH/shailesh JOB#: [id number] / [id number]
[2019-07-25] MEDS: ASCORBIC ACID 500 MG TABLET PO SCH (16:33)
[2019-07-25] MEDS: ATORVASTATIN CALCIUM 40 MG PO SCH (16:34)
[2019-07-25] MEDS: NIFEDIPINE PO SCH (16:34)
[2019-07-25] MEDS: predniSONE 20 MG TABLET PO SCH (18:27)
[2019-07-25] MEDS ORDERED: POTASSIUM CHLORIDE 20 MEQ TABLET.ER. PO ONE (19:15)
[2019-07-25 19:29] VITALS: BP 147/83
[2019-07-25] MEDS: MOMETASONE FUROATE INH SCH (20:26)
--- NOTE | 2019-07-25 21:59 | NUR ---
called in reference his report stating the pt was to have a ct in the morning. there was no order for the ct so i called to verify was he wanted. stated he would place the orders in the morning.
[2019-07-25 23:04] VITALS: BP 124/71
[2019-07-26] MEDS: predniSONE 20 MG TABLET PO SCH ×2 (00:18→05:00)
[2019-07-26 05:38] VITALS: BP 146/75
[2019-07-26] MEDS: IPRATRPIUM/ALBUTEROL 0.5/2.5MG 3 ML NEBU. NEB SCH ×4 (06:11→20:43)
[2019-07-26] MEDS ORDERED: diphenhydrAMINE 50 MG/ML VIAL IVP ONE (07:30)
[2019-07-26] MEDS: MULTIVITAMIN with MINERAL TABLET. PO SCH (10:31)
[2019-07-26] MEDS: LACTOBACILLUS RHAMNOSUS GG 1 CAPSULE. PO SCH ×2 (10:32→20:04)
[2019-07-26] MEDS: CALCIUM CARB/VIT D3 500/200 TABLET PO SCH ×2 (10:32→17:08)
[2019-07-26] MEDS: AZELASTINE HCL INH SCH ×2 (10:34→20:06)
[2019-07-26] MEDS: TRIAMCINOLONE ACETONIDE 0.1% TOPICAL OINTMENT 15GM TUBE. TP SCH (10:37)
[2019-07-26] MEDS: OMEPRAZOLE MAGNESIUM PO SCH (10:38)
[2019-07-26] MEDS: [UNRECOGNIZED DRUG - OTHER] PO SCH ×3 (10:41→20:05)
[2019-07-26] MEDS: PSEUDOEPHEDRINE HCL PO SCH ×3 (10:41→20:05)
[2019-07-26 11:01] VITALS: BP 146/72
[2019-07-26] MEDS ORDERED: CONTRAST GIVEN MC PRN (11:15)
[2019-07-26] MEDS ORDERED: IOHEXOL 350 MG/ML 100 ML VIAL. IV ONE (11:15)
--- NOTE | 2019-07-26 12:29 | NUR ---
NSG NOTE; CTA W/ CONTRAST ALLERGY PT HAD PREDNISONE X3 OVERNIGHT THEN BENADRYL IV 30 MINUTES BEFORE CONTRAST INJECTION. BACK TO ROOM AT APPROX 1130, AND NO S/S OF ALLERGIC REACTION AT THIS TIME
--- NOTE | 2019-07-26 12:58 | RAD ---
Examination: CT ANGIOGRAPHY CHEST History: Hypoxia Comparison/Correlation: 07/25/2019 AP view of the chest Findings: Axial images of the chest were obtained following IV contrast according to pulmonary arteriography protocol. Sagittal and coronal reformatted images were obtained. Maximum intensity projection images were provided. Motion limits evaluation of the main pulmonary arterial level and a multiple other images. Right thyroid lobe calcified nodule is present. Contrast opacification of the distal pulmonary arterial vasculature is nondiagnostic. Opacification of contrast the right and left pulmonary arteries of 200 or less Hounsfield units is noted. No central pulmonary arterial thromboembolic disease. Small pleural effusions are present. Mild bibasilar costophrenic atelectasis noted. Mild atelectasis and possible interstitial infiltrate involving the left upper lobe apicoposterior segment is noted. Small focal infiltrate or groundglass appearance of the lateral right mid thoracic region noted. Centrilobular emphysema lung coffey is present. Extensive coronary arterial calcifications present. A small hiatal hernia is present. Tortuosity of the distal thoracic aorta is noted with aneurysm of the thoracoabdominal aorta having a diameter of up to 3.6 cm.. Extensive calcific involvement of the thoracic aorta noted. No aneurysm identified involving the thoracic aorta. Left renal inferior pole calyceal calculus is present. Left renal cysts are present. Moderate left renal atrophy noted. Bifurcated aortic stent graft is partially visualized at its superior aspect. Infrarenal abdominal aortic aneurysm is also partially visualized. No large lymph nodes. Impression: No central pulmonary arterial thromboembolic disease. Motion and suboptimal opacification of the more distal pulmonary arterial vasculature renders assessment these sites nondiagnostic. Bibasilar atelectasis and pleural effusions. Atelectasis and/or infiltrate involving the left upper lobe apical posterior segment. Small groundglass focal infiltrate lateral right mid thoracic level. Interval follow-up to assess resolution should be considered in 6 months or possibly sooner if clinically warranted. Small hiatal hernia. Significant coronary arterial calcification. Centrilobular emphysema. PQRS Compliance Statement: One or more of the following individualized dose reduction techniques were utilized for this examination: 1. Automated exposure control 2. Adjustment of the mA and/or kV according to patient size 3. Use of iterative reconstruction technique Electronically signed by: Alexis Avalos MD (07/26/2019 12:54 PM) [facility]
[2019-07-26] MEDS ORDERED: FUROSEMIDE 20 MG/2 ML VIAL IVP ONE (13:00)
[2019-07-26] MEDS ORDERED: POTASSIUM CHLORIDE 20 MEQ TABLET.ER. PO ONE (13:00)
[2019-07-26] MEDS: methylPREDNISolone SOD SUCC PF 40 MG/ML VIAL. IV SCH ×2 (15:00→22:08)
[2019-07-26 15:27] VITALS: BP 126/72
[2019-07-26] MEDS: NIFEDIPINE PO SCH (17:08)
[2019-07-26] MEDS: ASCORBIC ACID 500 MG TABLET PO SCH (17:08)
[2019-07-26] MEDS: ATORVASTATIN CALCIUM 40 MG PO SCH (17:09)
[2019-07-26] MEDS: MEROPENEM 1 GM in IV NORMAL SALINE 100ML 100 ML IV SCH ×2 (17:27→22:08)
[2019-07-26] MEDS ORDERED: ACETAMINOPHEN 325 MG TABLET PO PRN (17:30)
[2019-07-26 19:25] VITALS: BP 154/79
[2019-07-26] MEDS: POTASSIUM CHLORIDE 20 MEQ TABLET.ER. PO SCH (20:04)
[2019-07-26] MEDS: MOMETASONE FUROATE INH SCH (20:06)
--- NOTE | 2019-07-26 22:17 | PN ---
DATE: 07/26/2019 SUBJECTIVE: The patient is sitting in her chair, eating her lunch comfortably. She is feeling generally much better; however, she continued to require oxygen. In fact, she is now on 4 liters. When at home, she is not on any oxygen at all. She is afebrile. Her white cell count is slightly elevated. Her blood culture has grown Klebsiella pneumoniae. The sensitivity is still pending at the time of this dictation. PHYSICAL EXAMINATION: GENERAL: When I examined her, she looked well and was clearly in no apparent respiratory distress. Slightly pale, no jaundice, cyanosis or thyromegaly. No jugular venous distention. No lower limb edema. VITAL SIGNS: Her heart rate was 86, blood pressure was 146/72, temperature 98.9, respiratory rate was 94 and on 4 liters of oxygen. HEAD, EYES, EARS, NOSE AND THROAT: Showed normocephalic, atraumatic. NECK: Supple. HEART: Showed normal first and second heart sounds with no gallop, rub or murmur. CHEST: Showed no crepitation or rhonchi. ABDOMEN: Distended, soft, nontender. No guarding or rigidity. No organomegaly. All hernial orifice intact. Bowel sounds normal. NEUROLOGIC: She is awake, alert, responding appropriately. All cranial nerves intact. She moves extremities without difficulty. She is able to ambulate with a walker. At home, she uses a walker or cane and sometimes walks without any. ASSESSMENT: 1. Generalized weakness. This seems to be slowly improving. 2. The patient has grown gram-negative rods identified as Klebsiella pneumoniae, sensitivity is still pending. Her urine culture has grown only 10,000 colony forming units of bacteria. 3. Hypertension that seems to be reasonably controlled. 4. Hyperlipidemia. 5. Small abdominal aortic aneurysm that is stable. 6. Elevated troponin, likely this is demand ischemia. 7. Hypoxia, the reason for which is not really clear. Her chest x-ray showed there is mild central predominant increased interstitial opacity. There is no consolidation. There is suspected trace pleural effusion. There is no pneumothorax. The heart is normal in size. I did a CT angio of the chest, the results of which are still pending at the time of this dictation. We did a CT scan of the chest with PE protocol, the results are still pending at the time of this dictation. PLAN: My plan is to try a dose of Lasix and see if that will help improve her oxygenation. VIANCA BORDEN MD DR: FAITH/shailesh JOB#: [id number] / [id number]
[2019-07-26 22:25] VITALS: BP 123/61
[2019-07-27] MEDS: IPRATRPIUM/ALBUTEROL 0.5/2.5MG 3 ML NEBU. NEB SCH ×4 (04:47→21:13)
[2019-07-27] MEDS: methylPREDNISolone SOD SUCC PF 40 MG/ML VIAL. IV SCH ×3 (04:58→21:13)
[2019-07-27] MEDS: MEROPENEM 1 GM in IV NORMAL SALINE 100ML 100 ML IV SCH ×3 (05:04→21:14)
[2019-07-27] MEDS: OMEPRAZOLE MAGNESIUM PO SCH (05:11)
[2019-07-27 05:49] VITALS: BP 133/72
[2019-07-27 06:38] LABS: HEMATOCRIT 35.1 % (36.0-47.0); HEMOGLOBIN 11.7 g/dL (12.0-15.5); RED BLOOD COUNT 3.94 x10^6/uL (3.50-5.40); RED CELL DISTRIBUTION WIDTH 14.6 % (11.5-14.5); WHITE BLOOD COUNT 12.2 x10^3/uL (4.0-11.0)
[2019-07-27 06:58] LABS: ALBUMIN 2.2 g/dL (3.4-5.0); CALCIUM 8.7 mg/dL (8.5-10.1); GFR 54.3; POTASSIUM 4.5 mmol/L (3.5-5.1)
[2019-07-27 07:12] LABS: ALBUMIN/GLOBULIN RATIO 0.5 (1.0-1.7); TOTAL BILIRUBIN 0.3 mg/dL (0.2-1.0); TOTAL PROTEIN 6.3 g/dL (6.4-8.2)
[2019-07-27] MEDS: TRIAMCINOLONE ACETONIDE 0.1% TOPICAL OINTMENT 15GM TUBE. TP SCH (08:02)
[2019-07-27] MEDS: CALCIUM CARB/VIT D3 500/200 TABLET PO SCH ×2 (08:02→16:22)
[2019-07-27] MEDS: POTASSIUM CHLORIDE 20 MEQ TABLET.ER. PO SCH ×2 (08:03→21:11)
[2019-07-27] MEDS: LACTOBACILLUS RHAMNOSUS GG 1 CAPSULE. PO SCH ×2 (08:03→21:11)
[2019-07-27] MEDS: ASCORBIC ACID 500 MG TABLET PO SCH (08:03)
[2019-07-27] MEDS: MULTIVITAMIN with MINERAL TABLET. PO SCH (08:03)
[2019-07-27] MEDS: PSEUDOEPHEDRINE HCL PO SCH ×3 (08:04→21:00)
[2019-07-27] MEDS: AZELASTINE HCL INH SCH ×2 (08:04→21:13)
[2019-07-27] MEDS: [UNRECOGNIZED DRUG - OTHER] PO SCH ×3 (08:04→21:00)
[2019-07-27 11:40] VITALS: BP 128/70
--- NOTE | 2019-07-27 13:36 | NUR ---
IP: patient has ESBL + blood cx, requires contact precautions until 2 negative results 7 days apart.
[2019-07-27 15:46] VITALS: BP 125/64
[2019-07-27] MEDS: ATORVASTATIN CALCIUM 40 MG PO SCH (16:36)
[2019-07-27] MEDS: NIFEDIPINE PO SCH (16:36)
[2019-07-27 20:04] VITALS: BP 150/76
--- NOTE | 2019-07-27 20:13 | PN ---
DATE: 07/27/2019 SUBJECTIVE: The patient is resting flat, sleeping comfortably, in no apparent distress, maintaining her oxygen saturation at 94% on 3.5 liters of oxygen. On questioning her, she said she is tired, but generally feels much better. PHYSICAL EXAMINATION: GENERAL: When I examined her, she looked well and was clearly in no apparent respiratory distress. No pallor, jaundice, cyanosis or thyromegaly. No jugular venous distention. No limb edema. VITAL SIGNS: Her heart rate was 84, blood pressure was 128/70, temperature 98.2, respiratory rate 20, and oxygen saturation was 94%. HEAD, EYES, EARS, NOSE AND THROAT: Normocephalic, atraumatic. NECK: Supple. CARDIAC: Normal first and second heart sounds. No gallop, rub or murmur. CHEST: Clear to auscultation. No crepitation or rhonchi. ABDOMEN: Distended, soft, nontender. NEUROLOGIC: Awake, alert and grossly intact. Her intake over the last 24 hours was 1970, output completely recorded. LABORATORY DATA: Her lab work this morning showed a serum sodium 138, potassium 4.5, chloride 103, bicarbonate 29, anion gap of 6, BUN 22, creatinine 1, estimated GFR was 54 mL per minute. Her glucose 174, calcium was 8.7. Total bilirubin, AST, ALT, alkaline phosphatase were normal. Total protein 6.3, albumin 2.2. White cell count was 12,000, hemoglobin 11.7, hematocrit 35, MCV 89 and platelet count 257,000. Prothrombin time, INR and PTT normal. Her Influenza A and B negative. ASSESSMENT: 1. Generalized weakness, slowly improving. 2. The patient has grown gram-negative rods identified as Klebsiella pneumoniae, sensitive to meropenem, resistant to Rocephin. 3. Hypertension, seems to be much, reasonably controlled. 4. Hyperlipidemia. 5. Small abdominal aortic aneurysm that is stable. 6. Elevated troponin, likely demand ischemia, hypoxia. The CT scan of the chest showed that she has no pulmonary emboli; however, she does have bilateral atelectasis and/or infiltrate involving the left upper lobe apical posterior segment. PLAN: To continue with IV meropenem. Continue IV steroids and bronchodilator. Normally she is without any oxygen at home, might have to arrange for her to have a 6-minute walk to qualify her for home oxygen tomorrow. VIANCA BORDEN MD DR: FAITH/shailesh JOB#: [id number] / [id number]
[2019-07-27] MEDS: MOMETASONE FUROATE INH SCH (21:13)
[2019-07-27 23:46] VITALS: BP 144/72
[2019-07-28] MEDS: IPRATRPIUM/ALBUTEROL 0.5/2.5MG 3 ML NEBU. NEB SCH ×3 (04:40→15:08)
[2019-07-28 05:10] VITALS: BP 158/72
[2019-07-28] MEDS: MEROPENEM 1 GM in IV NORMAL SALINE 100ML 100 ML IV SCH (06:03)
[2019-07-28] MEDS: methylPREDNISolone SOD SUCC PF 40 MG/ML VIAL. IV SCH (06:03)
[2019-07-28 06:54] LABS: CALCIUM 8.7 mg/dL (8.5-10.1); GFR 54.3; POTASSIUM 4.5 mmol/L (3.5-5.1)
[2019-07-28] MEDS: CALCIUM CARB/VIT D3 500/200 TABLET PO SCH (07:46)
[2019-07-28] MEDS: MULTIVITAMIN with MINERAL TABLET. PO SCH (07:46)
[2019-07-28] MEDS: LACTOBACILLUS RHAMNOSUS GG 1 CAPSULE. PO SCH (07:46)
[2019-07-28] MEDS: POTASSIUM CHLORIDE 20 MEQ TABLET.ER. PO SCH (07:46)
[2019-07-28] MEDS: AZELASTINE HCL INH SCH (07:48)
[2019-07-28] MEDS: TRIAMCINOLONE ACETONIDE 0.1% TOPICAL OINTMENT 15GM TUBE. TP SCH (07:56)
[2019-07-28] MEDS: OMEPRAZOLE MAGNESIUM PO SCH (08:00)
[2019-07-28] MEDS: PSEUDOEPHEDRINE HCL PO SCH (08:00)
[2019-07-28] MEDS: [UNRECOGNIZED DRUG - OTHER] PO SCH (08:00)
[2019-07-28 10:50] VITALS: BP 167/69
[2019-07-28] MEDS ORDERED: CIPR500T PO (13:14)
[2019-07-28] MEDS ORDERED: POTA20TA4 PO (13:19)
[2019-07-28] MEDS ORDERED: FURO-68 PO (13:19)
--- NOTE | 2019-07-28 13:29 | DISCH ---
HOME HEALTH DISCHARGE/MEDS DISCHARGE INFORMATION: Discharge Date: Jul 28, 2019 Final Diagnosis: Problems Medical Problems: (1) Severe sepsis Status: Acute (2) UTI (urinary tract infection) Status: Acute (3) Weakness Status: Acute Condition on Discharge: Stable CODE STATUS: Code Status: Full HOME HEALTH: Face to Face: I certify this patient is under my care and that I, or a nurse practitioner or physician's addictions counselor assistant working with me, had a face to face encounter that meets the physician face to face encounter requirements with this patient on [Date].07/28/19 Medical Condition(s): COPD, Pneumonia Correction For: Admin/Educate Injections Physical Therapy For: Evalulation/Treatment Occupational Therapy For: Evaluation/Treatment POST DISCHARGE ORDERS: Activity Instructions for Disc: Resume previous activity DIET AFTER DISCHARGE: Cardiac CERTIFICATION STATEMENT: Certification Statement: Based on the above finding, I certify that this patient is confined to the home and needs intermittent custodial care, physical therapy and/or speech therapy, or continues to need occupational therapy.~ This patient is under my care, and I have initiated the establishment of the plan of care.~ This patient will be followed by myself or a community physician who will periodically review the plan of care. DISCHARGE MEDICATIONS: Home Meds Active Scripts Potassium Chloride (KLOR-CON M20) 20 Meq Tab.er.prt, 1 TAB PO BID for hypokalemuia] for 30 Days, #60 TAB 0 Refills Prov:VIANCA BORDEN MD 07/28/19 Furosemide (LASIX) 40 Mg Tablet, 1 TAB PO DAILY for chf for 30 Days, #30 TAB 0 Refills Prov:VIANCA BORDEN MD 07/28/19 Ciprofloxacin Hcl (CIPROFLOXACIN HCL) 500 Mg Tablet, 1 TAB PO BID for cap for 7 Days, #14 TAB Prov:VIANCA BORDEN MD 07/28/19 Reported Medications Multivitamin (MULTI VITAMIN DAILY) 1 Each Tablet, 1 TAB PO DAILY for . for 30 Days, #30 TAB 0 Refills /2/20 Calcium Carbonate/Vitamin D3 (CALCIUM 600 + VIT D CAPLET) 1 Each Tablet, 1 TAB PO BID for . for 30 Days, #60 TAB 0 Refills /2/20 Ascorbic Acid (VITAMIN C) 500 Mg Capsule.er, 1 CAP PO DAILYBFRSUP for . for 30 Days, #30 CAP 0 Refills 1/2/20 Glucosamine/D3/Boswellia Shreya (OSTEO BI-FLEX CAPLET) 1 Each Tablet, 1 EACH PO BID for ., TAB /2/20 Bacillus Coagulans (Digestive Advantage) 1 Each Tab.chew, 1 EACH PO DAILY for ., TAB.CHEW 07/22/19 Guaifenesin (MUCINEX) 600 Mg Tablet.er, 1 TAB PO BID for cough for 10 Days, #20 TAB 0 Refills 220 Pseudoephedrine Hcl/Acrivas (SEMPREX-D 8 MG-60 MG CAPSULE) 1 Each Capsule, 1 CAP PO QID for . for 30 Days, #120 CAP 0 Refills 2/20 Mometasone Furoate (ELOCON) 15 Gm Cream..g., 1 SHAHRZAD TP PRN PRN for ECZEMA, #45 GM //20 Triamcinolone Acetonide (TRIAMCINOLONE ACETONIDE) 15 Gm Oint...g., 1 SHAHRZAD TP DAILY for IN EARS, #454 GM //20 Azelastine HCl (Azelastine HCl) 205.5 Mcg/0.137 Ml Edmond.pump, 2 SPR NS BID for . for 30 Days, #30 ML 0 Refills 20 Mometasone Furoate (NASONEX) 17 Gm Edmond.pump, 1 SPR NS HS for ., #1 INHALER 3 Refills 20 Omeprazole Magnesium (PRILOSEC OTC) 20 Mg Tablet.dr, 2 TAB PO DAILY for . for 30 Days, #60 TAB 0 Refills 2/20 Atorvastatin Calcium (LIPITOR) 40 Mg Tablet, 1 TAB PO DAILYBFRSUP for ., #90 TAB 1 Refill /2/20 Nifedipine (PROCARDIA XL) 60 Mg Tab.er.24, 1 TAB PO DAILYBFRSUP for ., #90 TAB 1 Refill /2/20 Lisinopril (ZESTRIL) 20 Mg Tablet, 1 TAB PO DAILY for . for 30 Days, #30 TAB 0 Refills 2/20 Clobetasol Propionate (TEMOVATE) 15 Gm Oint...g., 1 SHAHRZAD TP PRN BID PRN for . for 30 Days, #15 GM 0 Refills apply to affected area(s) 07/22/19 Discontinued Reported Medications Ibuprofen (Ibu) 400 Mg Tablet, 1 TAB PO QID for . for 5 Days, #20 TAB 0 Refills NEEDED FOR PAIN 07/22/19 Sulfamethoxazole/Trimethoprim (BACTRIM DS TABLET) 1 Each Tablet, 1 TAB PO DAILY for . for 10 Days, #10 TAB 0 Refills 07/22/19 VIANCA BORDEN MD Jul 28, 2019 13:29
--- NOTE | 2019-07-28 15:49 | NUR ---
NURSING NOTE DISCHARGE PT DISCHARGED TO HOME VIA AMBULATION ACCOMPANIED BY AT 1545. WRITTEN AND VERBAL DISCHARGE INSTRUCTIONS GIVEN TO PT AND . PT SENT HOME WITH OXYGEN. PT GIVEN EDUCATION ABOUT SMOKING CESSATION AND DANGER OF OXYGEN USE WITH THAT. PT SENT HOME WITH [facility]. JOVANNY JUSTIN.
--- NOTE | 2019-07-28 21:50 | DS ---
DATE OF DISCHARGE: 07/28/2019 HOSPITAL COURSE: The patient is a 73-year-old female patient, who was admitted through the emergency room on 07/22/2019 with complaint of generalized weakness, fever, and cough. The patient has also complained of shoulder pain, hip pain, and knee pain. She has history of arthritis. She is a smoker and not on any oxygen at home. Denied any history of coronary artery disease. No history of diabetes. Has history of hypertension. Her states that she has been getting weaker and not able to walk around much in the last few days. She was extensively investigated. She was found to have leukocytosis. Her chemistry was unremarkable. Urinalysis showed moderate amount of bacteria and more than 40 wbc's. Her influenza A and B were negative. The CT scan of the head was unremarkable. X-ray of her hip showed no evidence of any osseous finding. The patient was admitted and eventually was diagnosed with the community-acquired pneumonia and COPD exacerbation and in fact, her urine culture showed only growth of less than 10,000 colony forming units of bacteria; however, her blood culture has grown gram-positive bacteria, eventually identified as Klebsiella pneumoniae, susceptible to ciprofloxacin, ertapenem, gentamicin, imipenem, levofloxacin, and meropenem. Initially, we started her on Rocephin and eventually discontinued Rocephin as the bacteria is resistant to it and switched her to meropenem. We did also the 6-minute walk and she clearly qualifies for oxygen. She saturates down to 85, although her requirement of oxygen is slightly better today and down from 4 liters to 2 liters and therefore, the patient was discharged home with home health to continue with the tapering course of steroids, bronchodilator, oral antibiotic, and home oxygen. PHYSICAL EXAMINATION: GENERAL: When I saw her this afternoon, she was sitting comfortably in her chair, in no apparent respiratory distress. She was slightly pale, but no jaundice, cyanosis, or thyromegaly. No jugular venous distention. Mild bilateral lower limb edema. VITAL SIGNS: Her heart rate today was 82, blood pressure was 167/69, temperature 98.1, respiratory rate was 24, and oxygen saturation was 94% on 2 liters of oxygen. HEAD, EYES, EARS, NOSE, AND THROAT: Showed normocephalic and atraumatic. NECK: Supple. HEART: Showed normal first and second heart sounds. No gallop or murmur. CHEST: Clear to auscultation. No crepitation. No rhonchi. ABDOMEN: Distended, soft, and nontender. NEUROLOGIC: She is awake, alert, and responding appropriately. All cranial nerves are intact. She ambulates with a walker. Her intake over the last 24 hours was 1660, no output was recorded. LABORATORY WORK: This morning showed a white cell count 12,200, hemoglobin 11, hematocrit 35, and MCV 89 and her platelet count was 257,000. Her chemistry this morning showed a serum sodium of 138, potassium is 4.5, chloride 102, bicarbonate 32, anion gap of 4, BUN 26, and creatinine 1. Estimated GFR was 54 mL per minute. Her glucose was 146 and calcium was 8.7. Total protein was 6.3 and albumin was 2.2. Her total bilirubin and AST are normal. Alkaline phosphatase is slightly elevated. Her prothrombin time, INR, and aPTT were normal. Urinalysis showed more than 40 wbc's and moderate amount of bacteria. Her influenza A and B were negative. DISCHARGE MEDICATIONS: She was discharged home to continue on ciprofloxacin 500 mg twice a day for 7 days, furosemide 40 mg once a day, and potassium chloride 20 mEq once a day. She would continue on ascorbic acid 500 mg once a day, atorvastatin calcium 40 mg at the bedtime, azelastine 2 sprays to each nostril twice a day, Bacillus coagulans 1 p.o. daily, calcium carbonate with vitamin D3 one tablet p.o. b.i.d., clobetasol propionate 1 tablet once a day, glucosamine for Osteo Bi-Flex 1 tablet twice a day, Mucinex 600 mg twice a day, lisinopril for Zestril 20 mg once a day, mometasone furoate for Nasonex one spray to each nostril once a day, mometasone furoate for the Elocon cream applied topically as needed, multivitamin 1 tablet once a day, nifedipine for Procardia XL 60 mg once a day, omeprazole 20 mg once a day, pseudoephedrine/____ complex 4 times a day, and triamcinolone acetonide 15 cream ointment apply topically as needed. FINAL DISCHARGE DIAGNOSES: 1. Generalized weakness, seems to be slowly improving. 2. Community-acquired pneumonia with a growth of Gram-negative rods identified as Klebsiella pneumoniae, sensitive to ciprofloxacin. 3. Hypertension, seems to be reasonably controlled. 4. Hyperlipidemia. 5. Small abdominal aortic aneurysm and that is stable. 6. Elevated troponin, likely demand ischemia. 7. Chronic obstructive pulmonary disease exacerbation. 8. Dilnv-np-oygpezm hypoxic respiratory failure. A CT scan of the chest was negative for pulmonary emboli, but she has prominent emphysematous changes. Unfortunately, the patient continued to smoke. The patient will be discharged home with the home health to continue with the oral antibiotic and tapering course of steroids with bronchodilator and follow with her primary care physician. VIANCA BORDEN MD DR: FAITH/shailesh JOB#: [id number] / [id number]
== END 2019-07-28 15:52 | disposition home health service (06) | DRG 871 ==
LOC: ER 05:37 → 1 SOUTH 08:45
PROVIDERS: ADMIT Internal Medicine; ATTEND Internal Medicine
DX: A41.9 Sepsis, unspecified organism (principal); J15.0 Pneumonia due to Klebsiella pneumoniae; J96.21 Acute and chronic respiratory failure with hypoxia; N39.0 Urinary tract infection, site not specified; J44.0 Chronic obstructive pulmonary disease with (acute) lower respiratory infection; J44.1 Chronic obstructive pulmonary disease with (acute) exacerbation; Z16.19 Resistance to other specified beta lactam antibiotics; R65.20 Severe sepsis without septic shock; E78.00 Pure hypercholesterolemia, unspecified; E78.5 Hyperlipidemia, unspecified; E87.6 Hypokalemia; F17.210 Nicotine dependence, cigarettes, uncomplicated; I10 Essential (primary) hypertension; I71.4 Abdominal aortic aneurysm, without rupture; M15.9 Polyosteoarthritis, unspecified; Z86.14 Personal history of Methicillin resistant Staphylococcus aureus infection; Z86.79 Personal history of other diseases of the circulatory system; Z98.41 Cataract extraction status, right eye; Z98.42 Cataract extraction status, left eye; Z88.5 Allergy status to narcotic agent; Z88.8 Allergy status to other drugs, medicaments and biological substances; Z91.041 Radiographic dye allergy status
CPT/HCPCS: 36415; 70450; 71045; 71275; 73502; 80048; 80053; 81001; 83605; 83880; 84484; 85025; 85027; 85610; 85730; 87040; 87077; 87086; 87205; 87804; 93005; 93306; 94640; 94760; 96361; 96365; 96366; J0696; J1200; J2185; J2920; J7512; J7620; Q9967; 97110; 97116; 97530; 97535; 99285-25; J7030

== ENCOUNTER → 2019-08-02 | Outpatient (CLI) | payer MEDICARE, OTHER ==
[2019-07-28 10:50] VITALS: BP 167/69
[~2019-08-02] MED LIST: ASCO500C PO; ATOR40TA PO; AZEL205.2 NS; BACI1TAB2 PO; CALC-71 PO; CIPR500T PO; CLOB15OI3 TP; FURO-68 PO; GLUC1TAB71 PO; GUAI600T47 PO; IBUP400T99 PO; LISI-378 PO; MOME15CR13 TP; MOME17SP NS; MULT-245 PO; NIFE60TA PO; OMEP20TA63 PO; POTA20TA4 PO; PSEU1CAP14 PO; SULF1TAB24 PO; TRIA15OI TP
[2019-08-02 13:24] LABS: CALCIUM 8.9 mg/dL (8.5-10.1); CREATININE 1.2 mg/dL (0.6-1.0); POTASSIUM 4.7 mmol/L (3.5-5.1)
== END | disposition home or self-care (01) ==
LOC: SPEC 13:07
PROVIDERS: ATTEND Family Medicine
DX: E87.6 Hypokalemia (principal)
CPT/HCPCS: 36415; 80048

== ENCOUNTER → 2020-09-07 | Outpatient (CLI) | payer MEDICARE, OTHER ==
[~2020-09-07] MED LIST changes: -CIPR500T PO; +CIPR500T2 PO; -MOME15CR13 TP; +MOME15CR7 TP
--- NOTE | 2020-09-07 16:25 | RAD ---
EXAM: XR KNEE 1-2 VIEWS, XR KNEE_AP BILAT STANDING. HISTORY: Bilateral knee pain. COMPARISON: None. FINDINGS: On the left, the lateral compartmental joint space is effaced with remodeling of the latera l tibial plateau. There is exaggeration of the valgus angulation. No fractures are identified. Osteop enia appears moderate. No joint effusion is appreciated. On the right, the joint spaces appear grossly preserved. There are small marginal osteophytes. Alignm ent is maintained. There is no joint effusion. Atherosclerotic calcifications are noted. IMPRESSION: 1. Severe lateral compartment predominant osteoarthritis on the left, with remodeling of the lateral tibial plateau and exaggeration of valgus angulation. 2. Mild tricompartmental osteoarthritis on the right. Electronically signed by: Jenae Nichols MD (09/07/2020 4:22 PM) [id number]
--- NOTE | 2020-09-07 17:32 | RAD ---
EXAM: Right shoulder, 3 views. HISTORY: Pain. COMPARISON: None. FINDINGS: 3 views of the right shoulder obtained. There is severe glenohumeral joint space narrowing with subchondral sclerosis, subchondral cyst formation, marginal spurring and bony remodeling. The ac romioclavicular joint is intact. There is degenerative change involving the visualized cervical spine . IMPRESSION: 1. Severe glenohumeral osteoarthritis with associated bony remodeling. 2. No acute osseous finding. Electronically signed by: Elin Cuello MD (09/07/2020 5:29 PM) [id number]
== END ==
LOC: RAD 12:23
PROVIDERS: ATTEND Orthopaedic Surgery
DX: M17.0 Bilateral primary osteoarthritis of knee (principal); M21.862 Other specified acquired deformities of left lower leg; M19.011 Primary osteoarthritis, right shoulder
CPT/HCPCS: 73030; 73560; 73565

== ENCOUNTER → 2020-12-08 | Outpatient (CLI) | payer MEDICARE, OTHER ==
[2020-12-08 10:11] LABS: CREATININE 1.1 mg/dL (0.6-1.0); GFR 48.4
[2020-12-08] MEDS: IOHEXOL 350 MG/ML 100 ML VIAL. IV ONE (10:18)
--- NOTE | 2020-12-08 13:42 | RAD ---
Site ID: [id number] EXAMINATION: CTA ABDOMEN AND PELVIS WITHOUT IV CONTRAST. Technique: Axial images with coronal and sagittal reconstructions with MIP technique are performed of abdomen and pelvis without and with angiogram protocol. 60 mL of Omnipaque 350 administered intraven ously. One or more of the following radiation dose reduction techniques was used: automated exposure control , adjustment of mA and/or KV according to patient size, and/or utilization of iterative reconstructio n technique. HISTORY: 75 years Female Reason: CHECK STENT PLACEMENT, STENT 2013, abdominal aortic aneurysm COMPARISON: December 29, 2018. FINDINGS: There is an infrarenal abdominal aortic aneurysm measuring 6 cm in caliber compared to 5.5 cm on prev ious study from December 29, 2018. There is a small new focus of hyperdensity seen in the upper right kathe e aspect of the aneurysm sac compatible with an endoleak. Densities on the right side of the sac or n ot changed from the unenhanced phase compatible with calcifications. There is an aneurysm of the distal descending the aorta measuring 4 cm in caliber. There is also aneu rysmal dilatation of the upper abdominal aorta measuring 3.9 cm at the level of the celiac catheter t runk. At the level of the renal arteries the aorta caliber is 2.7 cm. The endograft appears to be in good position superiorly and the the right renal artery is patent. The left renal arteries demonstrate the stent in its proximal aspect and its patency is a uncertain. The left kidney demonstrate chronic significant atrophy. The endograft iliac catheter limbs landing gas zone is in the common iliac artery on the right side a nd the extends to the left external iliac artery on the left. 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 There is a stable large seroma in the right groin measuring 7 cm in diameter. The soft tissue in the abdomen and pelvis appear grossly unremarkable. Significant degenerative changes are noted in the lum bar spine with spondylolisthesis of L4 over L5 and prominent scoliosis in the thoracic and lumbar milka tebra. IMPRESSION: 1. There is interval increase the in the size of the infrarenal AAA now measuring 6 cm in caliber. 2. There is a new endoleak not seen previously noted along the upper right side aspect of the sac. Critical result: Findings were given by phone with Ms. Burns, medical office receptionist with vascular surgery taking care of the patient at 12/08/2020 1:30 PM. RESULT CODE: (C) Electronically signed by: Bernard Ervin MD (12/08/2020 1:39 PM) [id number]
== END ==
LOC: CT 09:23
PROVIDERS: ATTEND Registered Nurse Medical-Surgical
DX: I71.4 Abdominal aortic aneurysm, without rupture (principal)
CPT/HCPCS: 36415; 74174; 82565; Q9967

== ENCOUNTER → 2021-05-29 | Outpatient (CLI) | payer MEDICARE, OTHER ==
[~2021-05-29] MED LIST changes: +IOHEXOL 350 MG/ML 100 ML VIAL. IV ONE; +POTA-121 PO; -POTA20TA4 PO; -TRIA15OI TP; +TRIA15OI32 TP
[2021-05-29 12:58] LABS: GFR 54.1
--- NOTE | 2021-05-30 10:40 | RAD ---
EXAM: CT ANGIOGRAM ABDOMEN AND PELVIS WITH AND WITHOUT IV CONTRAST CLINICAL HISTORY: Reason: AAA W/O RUPTURE, HX OF STENT GRAFT FOR AAA COMPARISON: none TECHNIQUE:CT angiography of the abdomen and pelvis was performed before and after the administration of IV contrast during the arterial phase. Multiplanar reformatted images including 3-D/MIP reconstruc tions were generated. FINDINGS: CT ANGIOGRAM: Aneurysmal dilatation of the distal descending thoracic aorta measuring 4 cm, stable. Aneurysmal dilatation of the suprarenal abdominal aorta measuring approximately 3.7 cm at the level o f the celiac trunk. Infrarenal abdominal aorta aneurysm is seen post aortobiiliac stent graft repair. The aneurysm sac me asures approximately 5.9 x 6 cm, previously when remeasured in a similar fashion also measured 5.9 x 6 cm. The previously seen extraluminal contrast in the superior, right aneurysm sac is not definitive ly seen on today's exam. Other high density foci within the aneurysm sac, likely calcifications, barby lar to the noncontrast portion and prior examination. The endograft is grossly stable in position. The right renal artery is patent with mild atheromatous plaque and calcifications of the origin resulting in mild narrowing. Stent is seen at the origin of t he left renal artery and contrast is not seen within this portion, instead stenosis or occlusion is s uspected however the left renal artery beyond a point appears opacified with contrast. 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 Distal opacification from collaterals. A stent is seen within the proximal left external iliac artery, widely patent. The right internal and external iliac arteries are patent. Lung bases: Patchy opacities left lower lobe possibly atelectasis, atypical infectious or inflammator y process new compared to prior. Stable appearance of the liver, spleen and right adrenal gland. Left adrenal nodule is stable contain ing fat, likely lipid rich adenoma or myelolipoma. Bilateral renal cysts are seen. There is chronic atrophy of the left kidney. Focal scarring and atrop hy lower pole right kidney. Nonobstructing left lower pole renal calculus. No hydronephrosis. No hydr oureter. Bladder is unremarkable. Moderate to large volume colonic stool content is seen. Colonic div erticula are seen. No evidence for acute diverticulitis. Appendix is normal. Collection is seen overlying the right common femoral/superficial femoral artery measuring approximat refugio 7.1 cm, grossly stable. Osseous structures are grossly stable, including S-shaped scoliosis of the thoracolumbar spine with m arked multilevel degenerative change. Focal linear sclerosis along the pubic symphysis possibly degen erative or chronic insufficiency type fractures. IMPRESSION: 1. Infrarenal abdominal aortic aneurysm post graft repair with stable appearance and size of the ane urysm sac. Previously seen endoleak is not definitively seen on this exam. 2. Focal patchy opacities medial left lower lobe possibly focal atelectasis although atypical infect ious or inflammatory process could have this appearance. 3. Lesser incidental findings as above. Electronically signed by: Osman Franco MD (05/30/2021 10:37 AM) [id number]
== END ==
LOC: CT 12:25
PROVIDERS: ATTEND Surgery Vascular Surgery
DX: I71.4 Abdominal aortic aneurysm, without rupture (principal); I71.2 Thoracic aortic aneurysm, without rupture; R91.8 Other nonspecific abnormal finding of lung field; E27.8 Other specified disorders of adrenal gland; N28.1 Cyst of kidney, acquired; K57.30 Diverticulosis of large intestine without perforation or abscess without bleeding; N20.0 Calculus of kidney; N26.1 Atrophy of kidney (terminal); I70.8 Atherosclerosis of other arteries; I74.5 Embolism and thrombosis of iliac artery; M47.815 Spondylosis without myelopathy or radiculopathy, thoracolumbar region; M41.85 Other forms of scoliosis, thoracolumbar region
CPT/HCPCS: 36415; 74174; 82565; Q9967